=== PATIENT | male | born 1995 | race Asian ===

== ENCOUNTER 2025-01-30 18:25 | Emergency (ER) | payer MEDICAID, SELFPAY ==
--- NOTE | ~2025-01-30 | CT_ITS ---
CLINICAL HISTORY: RLQ pain, appy CT abdomen and pelvis with contrast Comparison: CT - CT ABDOMEN PELVIS W IV CON - 01/31/25 02:41 EDT Findings: Extensive motion and streak artifact limits evaluation. The lung bases are clear. Hepatic steatosis noted. No obvious urolithiasis hydronephrosis. Early excretory contrast in the bilateral renal collecting systems. Mild gaseous distention of the colon. No obvious bowel obstruction. Normal appendix presumably identified series 7, image 34. No acute fracture. IMPRESSION: Motion degraded exam, without obvious acute findings. If concern persists consider repeat. This document has been electronically signed by: Дмитрий Almonte MD on 01/31/2025 05:10:56
--- NOTE | ~2025-01-30 | XR_ITS ---
CLINICAL HISTORY: cough 1 view chest x-ray Comparison: None Findings: No consolidation or effusion. Normal size heart. No acute fracture. IMPRESSION: 1. No acute findings. This document has been electronically signed by: Дмитрий Almonte MD on 01/31/2025 03:13:09
[2025-01-30 18:29] VITALS: BP 110/63; PULSE 99; RESP 18; TEMP 36.4; O2SAT 100; BMI 21.5
--- NOTE | 2025-01-30 18:32 | ED_ITS ---
HPI - General Adult General Chief complaint: General Medical Stated complaint: Body aches, nausea, fever abd pain Time Seen by Provider: 01/31/25 01:29 Source: patient and family Limitations: language barrier History of Present Illness ED Provider: Lindsay Faustin PA-C HPI narrative: 29-year-old male presents with the abdominal pain x1 day. Pain over periumbilical region, nonradiating, has been present for 1 year . Associated nausea vomiting. Patient developed a fever today with the associated body aches. No sick contacts with similar symptoms, denies diarrhea. No dysuria. No cough or cold symptoms. Patient was seen at an outside facility, was advised to come to the emergency department for further assessment. Related Data Previous Rx's ?Medication ?Instructions ?Recorded polyethylene glycol 3350 17 17 g PO DAILY PRN constipation 01/31/25 gram/dose oral powder (Miralax) #510 grams Allergies Allergy/AdvReac Type Severity Reaction Status Date / Time No Known Allergies Allergy Verified 01/31/25 01:42 Review of Systems 2 Review of Systems: Yes all other systems are reviewed and are negative Constitutional: Constitutional: Reports fatigue, Reports fever(s) and Reports malaise Cardiovascular: Cardiovascular: Denies chest pain and Denies dyspnea Respiratory: Respiratory: Denies cough and Denies dyspnea Gastrointestinal: Gastrointestinal: Reports abdominal pain, Denies diarrhea and Reports nausea Genitourinary: Genitourinary: Denies dysuria Endocrine: Endocrine: Reports fatigue PMFSH Past Medical History Attestation statement: The following information was validated with the patient. Social History Social History Alcohol intake: never Smoked in Last 30 Days: No Use of substances other than those prescribed or required for medical reasons: No Advance Directives: No Advance Directives Information Provided: Yes Do you have a plan to hurt others: No Plan Physical Exam ED Vital Signs: Vital Signs - 24 hr 01/30/25 18:29 01/31/25 00:49 01/31/25 02:37 Temperature 97.6 F 101.2 F H 99.4 F Pulse Rate 99 89 81 Respiratory Rate 18 18 18 Blood Pressure 110/63 119/76 106/64 Pulse Oximetry 100 96 Oxygen Delivery Method Room Air Room Air 01/31/25 03:31 01/31/25 03:50 01/31/25 05:00 Temperature 99.2 F 99.0 F Pulse Rate 78 86 71 Respiratory Rate 16 18 18 Blood Pressure 107/65 112/61 103/63 Pulse Oximetry 95 98 96 Oxygen Delivery Method Room Air Room Air Room Air BMI result Body Mass Index 21.5 Const Other: Alert Orientation/consciousness: patient oriented x3 Resp Effort & Inspection: normal respiratory effort Cardio Other: normal peripheral perfusion GI Other: abdomen is soft, nondistended, mild tenderness across entire lower abdomen without guarding Skin Other: warm dry no rash Neuro General: patient oriented x3, gait normal, no focal motor deficits and CN's II- XI intact bilaterally Psych Other: cooperative Course Course Course Narrative: This is an RME done by KEVIN Fierro: Additional HPI, ROS, PE not included below will be deferred to primary provider. 29-year-old male presents with complaints of nausea, abdominal pain, subjective fevers, feeling overall unwell since yesterday. Patient reports his pain is right his belly button. 07/16. No sick contacts. No nausea, diarrhea, headache, vision changes, chest pain, shortness of breath, cough. Appearance: Alert.? Oriented X3.? No acute cardiopulmonary distress distress.? Head: Normocephalic, atraumatic, no step-offs or deformities ENT: Pharynx normal.??External ears normal, TMs normal bilaterally and EAC's normal. No pain with manipulation of external ears bilaterally. No mastoid tenderness. Neck: Normal inspection.? Neck supple.? CVS: Pulses normal.? Respiratory: No respiratory distress.? Abdomen: Soft and + TTP to umbilicus .? Skin: ? Normal skin color. Extremities: 5/5 strength to bilateral upper and lower extremities Back: No midline tenderness, no C-spine tenderness, full range of motion, No CVA tenderness bilaterally Neuro: Oriented X 3.? No motor deficit.? No sensory deficit. Reevaluation(s) Reevaluation #1: just picking up the patient now for assessment, he meets criteria for sepsis, blood cultures and lactic already in process, lactic resulted is 1.2, he is not tachycardic, his pressures are stable, we will be starting ceftriaxone, giving a 500 mL bolus to meet criteria, ordering a chest x-ray and a urinalysis. Viral panel negative. Adding on a CT of the abdomen Time: 01:29 Reevaluation #2: signed out to night team pending imaging and final disposition. Medications Administered Discontinued Medications Generic Name Dose Route Start Last Admin Trade Name Sejal PRN Reason Stop Dose Admin Acetaminophen 975 mg 01/31/25 01:32 01/31/25 01:37 Acetaminophen 325 Mg Tablet PO 01/31/25 01:33 975 mg ONCE ONE Administration Ceftriaxone Sodium 2 gm 01/31/25 01:30 01/31/25 01:38 Ceftriaxone Sodium 2 Gm Vial IVPUSH 01/31/25 01:31 2 gm ONCE ONE Administration Sodium Chloride 1,000 mls @ 999 mls/hr 01/31/25 01:30 01/31/25 03:10 Ns IV 01/31/25 02:30 Infused .Q1H1M FRAN Infusion Magnesium Sulfate 2 gm in 50 mls @ 25 mls/hr 01/31/25 01:33 01/31/25 02:36 Magnesium Sulfate/H2o IV 01/31/25 03:32 25 mls/hr ONCE ONE Administration Iohexol 85 ml 01/31/25 02:55 01/31/25 02:55 Iohexol 350 Mg/Ml 100 Ml Infus..Btl IV 01/31/25 02:56 85 ml ONCE ONE Administration Medical Decision Making Medical Decision Making MDM Narrative: 29-year-old male presents with the abdominal pain x1 day. Pain over periumbilical region, nonradiating, has been present for 1 year . Associated nausea vomiting. Patient developed a fever today with the associated body aches. No sick contacts with similar symptoms, denies diarrhea. No dysuria. No cough or cold symptoms. Patient was seen at an outside facility, was advised to come to the emergency department for further assessment. no chronic issues History: Per patient I have considered the following differential diagnoses: UTI, pneumonia, acute intra-abdominal pathology, viral syndrome, sepsis Plan: Screening labs and a viral panel were obtained from triage, the patient meets sepsis criteria, blood cultures and lactic were ordered, ceftriaxone in a L of fluid were given, he did not require weight based IV fluids given his pressures were stable in the lactate resulted normal. We will be adding on a urinalysis, chest x-ray and a CT of the abdomen; the patient was seen at an urgent care where Dr. Ruben Huertas works, he sent him here to rule out appendicitis, I was unaware of this. I have independently reviewed the following tests: labs:Leukocytosis with left shift noted, not anemic, no electrolyte abnormality other than magnesium which is subtly low at 1.4, lactic 1.2, C- reactive protein 2.71, viral panel negative, urine pending Chest x-ray:IMPRESSION: 1. No acute findings. CT abdomen and pelvis:[address] [address] [address] Scan Report Signed Patient: Kp Johnson MR#: [id number] : 1995 Acct:[id number] Age/Sex: 29 / M ADM Date: 01/31/25 Loc: HO.ED Attending Dr: Ordering Physician: Lindsay Faustin Date of Service: 01/31/25 Procedure(s): CT abdomen pelvis w IV con Accession Number(s): [id number] cc: Lindsay Faustin; John Martin PA-C~ Report Number: [id number]: Total DLP = 253.00 mGy-cm CLINICAL HISTORY: RLQ pain, appy CT abdomen and pelvis with contrast Comparison: CT - CT ABDOMEN PELVIS W IV CON - 01/31/25 02:41 EDT Findings: Extensive motion and streak artifact limits evaluation. The lung bases are clear. Hepatic steatosis noted. No obvious urolithiasis hydronephrosis. Early excretory contrast in the bilateral renal collecting systems. Mild gaseous distention of the colon. No obvious bowel obstruction. Normal appendix presumably identified series 7, image 34. No acute fracture. IMPRESSION: Motion degraded exam, without obvious acute findings. If concern persists consider repeat. This document has been electronically signed by: Дмитрий Almonte MD on 01/31/2025 05:10:56 Patient nonspecific abdominal pain with good amount of stool on the x-ray in the CT scan likely constipation cause of fever is not clear will discharge patient home stool softener likely the cause of the fever is viral Lab Data MDM Lab Attestation statement: I reviewed the patient's lab results. 01/30/25 18:53 01/30/25 18:53 Labs: Lab Results 01/30/25 01/31/25 01/31/25 Range/Units 18:53 01:04 04:56 WBC 14.7 H (4.8-10.8) X10*3/uL RBC 4.92 (4.60-5.80) X10*6/uL Hgb 15.7 (14.0-18.0) g/dl Hct 43.8 (42.0-52.0) % MCV 89.0 (80.0-98.0) fL MCH 31.9 (27.0-33.0) pg MCHC 35.8 (31.0-36.0) g/dl RDW 11.9 (11.0-16.0) % Plt Count 169 (160-400) X10*3/uL MPV 11.3 (9.4-12.4) fL Immature Gran % (Auto) 0.5 H (0.0-0.4) % Neut % (Auto) 87.2 H (45-73) % Lymph % (Auto) 5.8 L (20-40) % [place] % (Auto) 6.3 (2-11) % Eos % (Auto) 0.0 (0-4) % Baso % (Auto) 0.2 (0-2) % Lymph # (Auto) 0.9 L (1.2-4.9) X10*3/uL [place] # (Auto) 0.9 (0.1-1.2) X10*3/uL Eos # (Auto) 0.0 (0.0-0.4) X10*3/uL Baso # (Auto) 0.0 (0.0-0.2) X10*3/uL Abs Immat Gran (auto) 0.08 H (0.00-0.03) X10*3/uL Absolute Neuts (auto) 12.8 H (2.0-8.3) x10*3/uL Absolute Nucleated RBC 0.000 (0.0-0.012) X10*3/uL Nucleated RBC % (auto) 0.0 (0.0-0.2) /100WBC ESR 7 (0-15) MM/HR Sodium 136 (135-145) mmol/L Potassium 3.7 (3.3-5.1) mmol/L Chloride 106 (96-108) mmol/L Carbon Dioxide 21 L (22-29) mmol/L Anion Gap 13 (12-20) BUN 16 (9-16) mg/dL Creatinine 1.07 (0.5-1.4) mg/dL Estim Creat Clear Calc 73.1 Estimated GFR > 60 Random Glucose 112 (60-115) mg/dL Lactic Acid 1.2 (0.5-2.0) mmol/L Calcium 9.3 (8.4-10.2) mg/dL Magnesium 1.4 L* (1.6-2.6) mg/dL Total Bilirubin 1.2 H (0.0-1.0) mg/dL AST 20 (5-37) U/L ALT 11 (0-40) U/L Alkaline Phosphatase 107 (39-117) U/L C-Reactive Protein 2.71 H (< or = 0.50) mg/dL Total Protein 7.8 (6.5-8.0) g/dL Albumin 4.5 (3.5-5.0) g/dL Lipase 24 (8-78) U/L Urine Color Yellow Urine Appearance Clear Urine pH 6.0 (5.0-9.0) Ur Specific [place] >= 1.030 H (1.005-1.025) Urine Protein Negative (Neg-Trace) mg/dL Urine Glucose (UA) Negative (Negative) mg/dL Urine Ketones 15 (Negative) mg/dL Urine Blood Negative (Negative) Urine Nitrite Negative (Negative) Ur Leukocyte Esterase Negative (Negative) Influenza Type A (PCR) NEGATIVE (Negative) Influenza Type B (PCR) NEGATIVE (Negative) RSV RNA Qual (PCR) NEGATIVE (Negative) SARS-CoV-2 RNA (RT-PCR) NEGATIVE (Negative) Independent Interpretation I performed an independent interpretation of an: CT Scan Radiology Impression Discussion of test interpretation with radiology: I have reviewed the radiologist's reading. Discharge Plan Discharge Clinical Impression: Fever, Abdominal pain Patient Disposition: Home, Self-Care Instructions: Abdominal Pain (ED) Additional Instructions: Cause of your abdominal pain is not clear your appendix is normal slight constipation Likely viral syndrome Drink plenty of fluids Stool softener for constipation as advised Follow up with your PCP if not better Prescriptions: New polyethylene glycol 3350 [Miralax] 17 gram/dose powder 17 g PO DAILY PRN (Reason: constipation) Qty: 510 0RF Print Language: Swedish
[2025-01-30 19:00] LABS: MANUAL DIFF FLAG NO
[2025-01-30 19:18] LABS: Basophils Percent Auto 0.2 % (0-2); Hematocrit 43.8 % (42.0-52.0); Hemoglobin 15.7 g/dl (14.0-18.0); Imm Gran Abs Auto 0.08 X10*3/uL (0.00-0.03); Imm Gran Pct Auto 0.5 % (0.0-0.4); Lymphocytes Absolute Auto 0.9 X10*3/uL (1.2-4.9); Lymphocytes Percent Auto 5.8 % (20-40); Mean Corpuscular HGB Conc 35.8 g/dl (31.0-36.0); Mean Corpuscular Hemoglobin 31.9 pg (27.0-33.0); Mean Platelet Volume 11.3 fL (9.4-12.4); Monocytes Absolute Auto 0.9 X10*3/uL (0.1-1.2); Monocytes Percent Auto 6.3 % (2-11); Neutrophils Absolute Auto 12.8 x10*3/uL (2.0-8.3); Neutrophils Percent Auto 87.2 % (45-73); Platelet Count 169 X10*3/uL (160-400); Red Blood Count 4.92 X10*6/uL (4.60-5.80); Red Cell Distribution Width 11.9 % (11.0-16.0); White Blood Count 14.7 X10*3/uL (4.8-10.8)
[2025-01-30 19:29] LABS: Alanine Aminotransferase 11 U/L (0-40); Albumin Level 4.5 g/dL (3.5-5.0); Alkaline Phosphatase 107 U/L (39-117); Anion Gap 13 (12-20); Aspartate Amino Transferase 20 U/L (5-37); Bilirubin Total 1.2 mg/dL (0.0-1.0); Blood Urea Nitrogen 16 mg/dL (9-16); C Reactive Protein 2.71 mg/dL (< or = 0.50); Calcium 9.3 mg/dL (8.4-10.2); Carbon Dioxide 21 mmol/L (22-29); Chloride 106 mmol/L (96-108); Creatinine Clr Calc Pharmacy 73.1; Estimated Glomerular Filt Rate > 60; Glucose Random 112 mg/dL (60-115); Lipase 24 U/L (8-78); Magnesium 1.4 mg/dL (1.6-2.6); Potassium 3.7 mmol/L (3.3-5.1); Sodium 136 mmol/L (135-145); Total Protein 7.8 g/dL (6.5-8.0)
[2025-01-30 19:37] LABS: Influenza A PCR NEGATIVE (Negative); Influenza B PCR NEGATIVE (Negative); Resp Syncy Virus RNA Qual PCR NEGATIVE (Negative); SARS COV2 PCR INHOUSE NEGATIVE (Negative)
[2025-01-30 20:15] LABS: Erythrocyte Sedimentation Rate 7 MM/HR (0-15)
[2025-01-31] VITALS (7 sets, daily range): BP systolic 102–119; BP diastolic 61–76; PULSE 64–89; RESP 16–18; TEMP 37.2–38.4; O2SAT 95–98
--- NOTE | 2025-01-31 00:52 | MHC.EDTECH ---
took patients temperature orally. 101.2. Spoke with PEGGY Rossi about the fever.
[2025-01-31 01:26] LABS: Lactic Acid 1.2 mmol/L (0.5-2.0)
[2025-01-31] MEDS: Acetaminophen 325 MG TABLET 975 MG PO (01:37)
[2025-01-31] MEDS: cefTRIAXone sodium 2 GM VIAL IVPUSH (01:38)
[2025-01-31] MEDS: 0.9 % Sodium Chloride 1,000 ML 999 ML IV (01:38)
[2025-01-31] MEDS: Magnesium Sulfate/H2O 2 GM/50 ML PIGGYBACK IV (02:36)
--- NOTE | 2025-01-31 02:41 | MHC.EDTECH ---
Patient attempted to use the bathroom. was unable to give a urine sample.
[2025-01-31] MEDS: iohexoL 350 MG/ML 100 ML INFUS..BTL 85 ML IV (02:55)
[2025-01-31 05:02] LABS: Appearance Urine Clear; Color Urine Yellow; Glucose Urine UA Negative (Negative); Leukocyte Esterase Urine Negative (Negative); Nitrite Urine Negative (Negative); Specific Gravity - Urine >= 1.030 (1.005-1.025); Urine Blood Negative (Negative); Urine Ketones 15 mg/dL (Negative); Urine Protein Negative (Neg-Trace)
[2025-01-31] MEDS: Milk of Magnesia 30 ML ORAL.SUSP PO (05:51)
== END 2025-01-31 05:45 | disposition home or self-care (01) ==
PROVIDERS: Physician Assistant; Physician Assistant Medical; Emergency Provider Internal Medicine; PCP Physician Assistant
DX: R10.33 Periumbilical pain (principal); R50.9 Fever, unspecified; R05.9 Cough, unspecified; R11.2 Nausea with vomiting, unspecified; Z03.818 Encounter for observation for suspected exposure to other biological agents ruled out
CPT/HCPCS: 0241U; 36415; 71045; 74177; 80053; 81003; 83605; 83690; 83735; 85025; 85652; 86140; 87040; 96361; 96365; 96366; 96375; 99285; J0696; J3475; Q9967

== ENCOUNTER → 2025-01-31 02:04 | Outpatient (BNV) | payer MEDICAID, SELFPAY | PROVIDERS: Emergency Provider Internal Medicine; PCP Physician Assistant; Visit Provider Radiology Diagnostic Radiology | DX: R10.31 Right lower quadrant pain (principal); R05.9 Cough, unspecified | CPT/HCPCS: 71045; 74177 ==